=== PATIENT | female | born 1995 | race Caucasian/White ===

== ENCOUNTER 2017-11-15 22:23 | Inpatient (IN) | payer OTHER ==
[~2017-11-15] VITALS: Ht 167.6 cm; Wt 86.2 kg
[2017-11-15 22:53] VITALS: Ht 167.6 cm; Wt 86.2 kg
[2017-11-16 00:40] LABS: BASOPHIL % 0.3 % (0-2); PLATELET COUNT 306 x10^3mcL (130-400)
[2017-11-16 00:43] LABS: microscopic required? YES; urine erythrocyte NEGATIVE (NEGATIVE)
[2017-11-16 00:44] LABS: RED CELL DISTRIBUTION WIDTH 15.6 % (11.5-14.5)
[2017-11-16 00:51] LABS: CALCIUM 8.6 mg/dL (8.5-10.1); CHLORIDE SERUM 108 mmol/L (98-107); CREATININE SERUM 0.6 mg/dL (0.6-1.0); GFR1 > 60 mL/min; GLUCOSE SERUM 123 mg/dL (74-106); POTASSIUM SERUM 3.4 mmol/L (3.5-5.1); SODIUM SERUM 145 mmol/L (136-145)
[2017-11-16 00:57] LABS: ALBUMIN 3.6 g/dL (3.4-5.0); ALKALINE PHOSPHATASE 235 U/L (46-116); ALT/SGPT 281 U/L (14-59); AST/SGOT 486 U/L (15-37); BILIRUBIN TOTAL 1.66 mg/dL (0.20-1.00); TOTAL PROTEIN, SERUM 7.7 g/dL (6.4-8.2)
[2017-11-16 01:10] LABS: LIPASE 27362 IU/L (73-393)
[2017-11-16 03:20] VITALS: BP 103/54
[2017-11-16 03:47] LABS: T3 TOTAL 1.13 ng/mL
[2017-11-16 03:51] LABS: FREE T4 1.16 ng/dL (0.76-1.46); FREE THYROXINE INDEX 2.9 ug/dL (1.4-4.5); T4(THYROXINE) 8.5 ug/dL (4.7-13.3)
[2017-11-16 04:28] LABS: CHOLESTEROL/HDL RATIO 3.8; MAGNESIUM 2.1 mg/dL (1.8-2.4); PHOSPHOROUS 3.8 mg/dL (2.5-4.9)
[2017-11-16 05:02] VITALS: BP 102/63
[2017-11-16 08:40] VITALS: BP 106/65
[2017-11-16 13:35] VITALS: BP 101/56
[2017-11-16 17:30] VITALS: BP 109/64
[2017-11-16 19:15] VITALS: BP 100/57
[2017-11-16 19:16] LABS: AMPHETAMINE QUAL UR NONE DETECTED (NEG <=1000)
[2017-11-17 05:29] VITALS: BP 109/59
[2017-11-17 06:09] LABS: BASOPHIL % 0.6 % (0-2); PLATELET COUNT 220 x10^3mcL (130-400)
[2017-11-17 06:31] LABS: ALKALINE PHOSPHATASE 216 U/L (46-116); ALT/SGPT 164 U/L (14-59); AST/SGOT 116 U/L (15-37); BILIRUBIN DIRECT 0.33 mg/dL (0.0-0.2); BILIRUBIN TOTAL 0.73 mg/dL (0.20-1.00); CALCIUM 7.8 mg/dL (8.5-10.1); CARBON DIOXIDE 26.4 mmol/L (21-32); CHLORIDE SERUM 114 mmol/L (98-107); CREATININE SERUM 0.6 mg/dL (0.6-1.0); GFR1 > 60 mL/min; GLUCOSE SERUM 86 mg/dL (74-106); LIPASE 1169 IU/L (73-393); POTASSIUM SERUM 3.7 mmol/L (3.5-5.1); SODIUM SERUM 149 mmol/L (136-145)
[2017-11-17 06:32] LABS: RED CELL DISTRIBUTION WIDTH 15.8 % (11.5-14.5)
[2017-11-17 06:33] LABS: rbc morphology (normal/abnorm) ABNORMAL (NORMAL)
[2017-11-17 06:50] LABS: ALBUMIN 2.5 g/dL (3.4-5.0); AMYLASE 158 U/L (25-115); TOTAL PROTEIN, SERUM 5.8 g/dL (6.4-8.2)
[2017-11-17 09:23] VITALS: BP 113/52
[2017-11-17 13:16] VITALS: BP 108/60
[2017-11-17 16:40] VITALS: BP 97/49
[2017-11-17 20:47] VITALS: BP 132/62
[2017-11-18 05:31] VITALS: BP 116/59
[2017-11-18] MEDS ORDERED: FER300 PO (06:08)
[2017-11-18 06:48] LABS: BASOPHIL % 0.3 % (0-2); CALCIUM 7.9 mg/dL (8.5-10.1); CARBON DIOXIDE 26.9 mmol/L (21-32); CHLORIDE SERUM 108 mmol/L (98-107); CREATININE SERUM 0.5 mg/dL (0.6-1.0); GFR1 > 60 mL/min; GLUCOSE SERUM 94 mg/dL (74-106); PLATELET COUNT 254 x10^3mcL (130-400); POTASSIUM SERUM 3.7 mmol/L (3.5-5.1); SODIUM SERUM 142 mmol/L (136-145)
[2017-11-18 06:50] LABS: RED CELL DISTRIBUTION WIDTH 15.9 % (11.5-14.5)
[2017-11-18 09:04] LABS: BILIRUBIN DIRECT 0.21 mg/dL (0.0-0.2); BILIRUBIN TOTAL 0.48 mg/dL (0.20-1.00)
[2017-11-18 09:05] LABS: ALBUMIN 2.6 g/dL (3.4-5.0); TOTAL PROTEIN, SERUM 6.1 g/dL (6.4-8.2)
[2017-11-18 09:21] VITALS: BP 107/60
[2017-11-18 11:01] VITALS: BP 107/60
[2017-11-18] MEDS ORDERED: COL100 PO (12:13)
[2017-11-18] MEDS ORDERED: PHARMASSURE VI500 MG PO (12:13)
[2017-11-18] MEDS ORDERED: MOT800 PO (12:15)
== END 2017-11-18 14:00 | disposition home or self-care (01) | DRG 951 ==
LOC: ED 22:23 → MU 11-16 01:43 → DU 11-16 01:43 → MU 11-17 07:54
PROVIDERS: Emergency Medicine; Family Medicine; Surgery
PROC: BF131ZZ Fluoroscopy of Gallbladder and Bile Ducts using Low Osmolar Contrast (ICD-10-PCS; 2017-11-17)
PROC: 0FT44ZZ Resection of Gallbladder, Percutaneous Endoscopic Approach (ICD-10-PCS; principal; 2017-11-17 10:30)
DX: O99.89 Other specified diseases and conditions complicating pregnancy, childbirth and the puerperium (principal); K85.10 Biliary acute pancreatitis without necrosis or infection; O86.20 Urinary tract infection following delivery, unspecified; K80.00 Calculus of gallbladder with acute cholecystitis without obstruction; E87.6 Hypokalemia; D64.9 Anemia, unspecified; Z83.3 Family history of diabetes mellitus; Z56.0 Unemployment, unspecified; Z90.49 Acquired absence of other specified parts of digestive tract
CPT/HCPCS: 83880; 84439; 94150; C1758; J1170; J1885; J2405; J2543; J3010; J3480; J3490; J7030; J7050; Q0092; Q9967